=== PATIENT | female | born 2000 | race Caucasian/White ===

== ENCOUNTER 2024-02-20 16:31 | Emergency (ER) | payer BC, SELFPAY ==
--- NOTE | 2024-02-20 16:44 | ED_ITS ---
HPI - URI/Sore Throat General Chief Complaint: Wound/Laceration Stated Complaint: SORE THROAT / HEADACHE Time Seen by Provider: 02/20/24 16:49 Source: patient and RN notes reviewed Mode of arrival: ambulatory Limitations: no limitations History of Present Illness HPI Narrative: 23-year-old female presents with concern of for sore throat, nasal congestion, ear pain. Reports ear pain is worse on the left. She reports she did have a rash on her neck a few days ago that is getting better. She denies fever, aches, chills, sweats. She reports she took NyQuil last night MD elicited complaint: sore throat Related Data Home Medications Medication Instructions Recorded Confirmed fluticasone propionate 50 1 spray intranasal DAILY 02/20/24 02/20/24 mcg/actuation nasal spray,suspension loratadine 10 mg tablet 10 mg PO DAILY 02/20/24 02/20/24 methylphenidate HCl 36 mg 36 mg PO DAILY 02/20/24 02/20/24 tablet,extended release 24 hr spironolactone 50 mg tablet 50 mg DAILY 02/20/24 02/20/24 Allergies Allergy/AdvReac Type Severity Reaction Status Date / Time No Known Allergies Allergy Verified 02/20/24 16:47 Review of Systems Review of Systems: CONSTITUTIONAL: Denies malaise, chills, sweats, or fever. EYES: Denies visual changes, redness, or discharge. ENT: Reports rhinorrhea, congestion, otalgia and sore throat. CARDIOVASCULAR: Denies chest pain, palpitations, or edema. RESPIRATORY: Reports occasional cough. Denies dyspnea. GASTROINTESTINAL: Denies abdominal pain, nausea, vomiting, diarrhea SKIN: Denies rash or itching. MUSCULOSKELETAL: Denies myalgia. NEUROLOGIC: Denies headache. All systems reviewed & are unremarkable except as noted in HPI and below PMFSH Comments At time of signature, agree with nursing past medical, surgical, social and family history. There is no relevant family history pertinent to the presenting complaint Exam Narrative: GENERAL: Well-appearing, well-nourished, and in no acute distress. HEAD: Normocephalic EYES: PERRLA, conjunctivae clear ENT: Nares clear, turbinates edematous and erythematous, clear discharge. Mucous membranes moist. TM pearly with dull light reflex bilaterally; no tragal tenderness. Oropharynx not erythematous without lesions. Tonsils not enlarged and without exudate, no drooling, no hoarseness, no trismus, uvula midline. NECK: Supple. No lymphadenopathy CHEST: Clear to auscultation, breath sounds equal. No wheezing, rhonchi, rales, or stridor. No respiratory distress, speaks in full sentences. HEART: Regular rate and rhythm. No murmur heard. SKIN: Warm, dry, no rash. NEURO: Alert and oriented x3. PSYCH: Normal mood and affect Course Course Emergency Course: Patient is aware of diagnosis, understands and agrees to treatment plan. Anticipatory guidance given. Patient agrees to follow-up as directed and is aware of reasons to seek care at the emergency department. Portions of this record may have been created with voice recognition software Level of Care: [facility] Visit Vital Signs Vital signs: Reviewed. Procedures Ear Wax Removal Right Ear: Ear Wax Removal Date: 02/20/24 Ear Wax Removal Time: 16:58 Results: Re-examined: cerumen removed completely TM Examination: TM(s) intact, normal appearance Ear Canal Exam: atraumatic Patient Tolerated Procedure: well Complications: no problems Technique: ear canal curetted MDM - URI/Sore Throat MDM Narrative Medical decision making narrative: Differential diagnosis considered: Jones virus, strep pharyngitis, allergic rhinitis, upper respiratory tract infection, sinusitis, rhinosinusitis, nasopharyngitis. viral pharyngitis, otitis media, otitis externa, pneumonia, bronchitis, viral cough syndrome, viral syndrome, and influenza. Exam findings show no acute concerns or changes; patient is non-toxic appearing and is in no distress. Patient is appropriate for outpatient treatment and follow-up. Lab Data Attestation: I reviewed the patient's lab results. Critical Care Time Critical Care Time Critical Care Time: No Discharge Plan Discharge Clinical Impression: Upper respiratory infection Patient Disposition: Home, Self-Care Condition: Stable Instructions: Upper Respiratory Infection (ED) Additional Instructions: Your rapid strep swab was negative today at [facility]. A throat culture will be sent to the laboratory for further testing. If the test is positive, you will receive a phone call within 48 hours and an appropriate antibiotic will be initiated at that time. Your symptoms are likely due to a viral illness, which is not treated with antibiotics. Viral symptoms can be present for up to a few weeks. -Alternate Tylenol and Motrin per package directions for fever or pain. -Antihistamine medication such as Benadryl at night and Zyrtec during the day can help improve symptoms. -Eat and drink things that are easy to swallow, like tea or soup, or popsicles to suck on. -Oral rinses such as: Salt water gargles and/or may use topical anesthetic (eg. Chloraseptic spray) or lozenges to relieve dryness or throat pain). -Frequent hand washing or hand system development manager is one of the best ways to prevent spread of infection. -Follow up with primary care provider in 2-3 days if condition is not improving; or seek ER visit if you have trouble breathing, cannot drink enough fluids, have muffled voice, difficulty opening your mouth, or severe swelling. Prescriptions: New pseudoephedrine HCl [12 Hour Decongestant] 120 mg tablet extended release 120 mg PO Q12H PRN (Reason: nasal congestion) Qty: 20 0RF No Action fluticasone propionate [Flonase] 50 mcg/actuation [place],Suspension 1 spray INTRANASAL DAILY Rx Instructions: administer into each nostril loratadine 10 mg Tablet 10 mg PO DAILY methylphenidate HCl 36 mg tablet extended release 24hr 36 mg PO DAILY spironolactone 50 mg tablet 50 mg DAILY Follow-up/Referrals: PHYSICIAN,HAND PACKAGER [Primary Care Provider] - Time of Disposition: 17:08
[2024-02-20 16:47] VITALS: BP 114/70; PULSE 80; RESP 16; TEMP 36.4; O2SAT 98
[2024-02-20 16:49] VITALS: BP 114/70; PULSE 80; RESP 16; TEMP 36.4; O2SAT 98
[2024-02-20 17:08] LABS: EDSTREPNEGPOS1 Negative (Negative)
== END 2024-02-20 17:13 | disposition home or self-care (01) ==
PROVIDERS: Emergency Provider Nurse Practitioner
DX: J06.9 Acute upper respiratory infection, unspecified (principal); H61.21 Impacted cerumen, right ear; F90.9 Attention-deficit hyperactivity disorder, unspecified type
CPT/HCPCS: 69210; 87081; 87880; 99203; G0463

== ENCOUNTER 2024-07-07 09:45 | Emergency (ER) | payer BC, SELFPAY ==
[2024-07-07 09:50] VITALS: BP 117/72; PULSE 95; RESP 16; TEMP 36.4; O2SAT 97
[2024-07-07 10:09] LABS: EDSTREPNEGPOS1 Negative (Negative)
--- NOTE | 2024-07-07 10:12 | ED.URI ---
HPI - URI/Sore Throat General Chief Complaint: Upper Respiratory Infection Stated Complaint: Sore Throat/Congestion Time Seen by Provider: 07/07/24 10:12 Source: patient Mode of arrival: ambulatory Limitations: no limitations History of Present Illness HPI Narrative: 23-year-old female presents with complaint of intermittent nasal congestion, sinus pressure, sinus headaches for the past month. Patient takes a generic antihistamine daily. Intermittently uses a Flonase nasal spray. Afebrile. Reports sinus congestion, pressure and sore throat with drainage worse the past 2-3 days. Patient concern for bacterial sinusitis. All systems reviewed and negative except as noted above. Related Data Home Medications ?Medication ?Instructions ?Recorded ?Confirmed ?Last Taken ?Type loratadine 10 mg tablet 10 mg PO DAILY 02/20/24 02/20/24 Unknown History spironolactone 50 mg tablet 50 mg DAILY 02/20/24 02/20/24 Unknown History Allergies Allergy/AdvReac Type Severity Reaction Status Date / Time No Known Allergies Allergy Verified 07/07/24 10:00 Review of Systems Review of Systems: CONSTITUTIONAL: Denies fever, chills, or sweats. EYES: Denies visual changes, redness, or discharge. ENT: Reports rhinorrhea, congestion, sinus pressure, sinus headaches, sore throat. Denies otalgia. CARDIOVASCULAR: Denies chest pain, palpitations, or edema. RESPIRATORY: Denies cough or dyspnea. GASTROINTESTINAL: Denies abdominal pain, nausea, vomiting, or diarrhea. GENITOURINARY: Denies dysuria or hematuria. SKIN: Denies rash or itching. MUSCULOSKELETAL: Denies back pain, joint pain, or myalgia. NEUROLOGIC: Denies headache, numbness, or weakness. PSYCHIATRIC: Denies anxiety or depression. All other systems reviewed are negative, except as documented in HPI. PMFSH Comments At time of signature, agree with nursing past medical, surgical, social and family history. There is no relevant family history pertinent to the presenting complaint. Exam Narrative: GENERAL: This is a well-nourished, well-developed patient, in no apparent distress. HEAD: normocephalic, atraumatic. EYES: PERRL. Sclera clear/white. Vision is grossly intact. EARS: External ears normal, auditory canals clear and without drainage, TMs normal without perforation. Hearing grossly intact. NOSE: External nose normal with congestion, purulent nasal drainage, erythema and swelling to bilateral nares. Maxillary sinus tenderness bilaterally on palpation THROAT: Mucous membranes moist, erythematous with postnasal drainage, no significant swelling or exudates NECK: Neck supple, non-tender without lymphadenopathy, masses or thyromegaly. CARDIOVASCULAR: Regular rate and rhythm without murmurs, gallops, or rubs. RESPIRATORY: Clear to auscultation. Breath sounds equal bilaterally. No wheezes, rales, or rhonchi. SKIN: warm, Dry, intact with no suspicious lesions or rash, good texture and turgor. NEURO: awake, alert, and oriented to person, place and time. There were no obvious focal neurologic abnormalities. EXTREMITIES: No joint tenderness, effusion, or edema noted. Course Course Level of Care: Express Care Visit Vital Signs Vital signs: Vital Signs Temperature 36.4 C L 07/07/24 09:50 Pulse Rate 95 07/07/24 09:50 Respiratory Rate 16 07/07/24 09:50 Blood Pressure 117/72 07/07/24 09:50 Pulse Oximetry 97 07/07/24 09:50 Oxygen Delivery Room Air 07/07/24 09:50 Temperature 36.4 C L 07/07/24 09:50 Pulse Rate 95 07/07/24 09:50 Respiratory Rate 16 07/07/24 09:50 Blood Pressure 117/72 07/07/24 09:50 Pulse Oximetry 97 07/07/24 09:50 Oxygen Delivery Room Air 07/07/24 09:50 reviewed MDM - URI/Sore Throat MDM Narrative Medical decision making narrative: will treat for bacterial sinusitis due to duration of symptoms and exam findings. Patient is well-appearing, nontoxic. Please be advised this is a medical document. It is intended for [id number] communication. It is written in medical language and may contain unfamiliar abbreviations or verbiage. Medical documents are intended to carry relevant information, facts as evident, and the clinical opinion of the practitioner at the time of the encounter. This report may have been done utilizing a voice recognition system. Attempts have been made to correct errors. However, there may be uncorrected grammatical, spelling, and recognition errors present. The file time of this note does not necessarily represent the time of service. Differential Diagnosis Differential diagnosis: Likely upper respiratory infection, sinusitis, viral infection and pharyngitis Lab Data Labs: Lab Results 07/07/24 Range/Units 10:07 POC Grp A Strep Screen Negative (Negative) Discharge Plan Discharge Clinical Impression: Acute bacterial sinusitis Patient Disposition: Home Condition: Stable Instructions: Antibiotic Form, Sinusitis (ED) Additional Instructions: Take medications as prescribed. Continue taking your daily antihistamine. Use a nasal spray daily such as Flonase or Nasacort. Use as directed on packaging. Drink at least 64 oz of water a day. Place cool mist humidifier in bedroom where you sleep. Follow-up with your primary care physician if symptoms are not improving. Patient Language: Ethiopian Prescriptions: New amoxicillin 875 mg tablet 875 mg PO Q12H 7 Days Qty: 14 0RF methylprednisolone [Medrol (Donny)] 4 mg tablets,dose pack See Rx Instructions PO .COMPLEX Qty: 21 0RF Rx Instructions: orally per package directions No Action loratadine 10 mg Tablet 10 mg PO DAILY spironolactone 50 mg tablet 50 mg DAILY Follow-up/Referrals: PHYSICIAN NOT ON STAFF,NONSTAFF [Primary Care Provider] - Stand Alone Forms: Work/School Release IP Time of Disposition: 10:18
--- OUTSIDE RECORDS SUMMARY | 2024-07-07 10:35 | XMS_ITS ---
Author Organization [facility] Address [address] [place], [place] [id number] Care Team Providers Care Manager Medicare Marketing Name Role Phone Mariela Schaffer Primary Care Provider REASON FOR VISIT RE:spironolactone RF Social History Sex Assigned At : Social History Observation Description Sex Assigned At Female Encounters Encounter Location Date Provider Diagnosis [facility] [address] [place], [place] [id number] 03/03/2024 Mariela Schaffer Plan Of Treatment No Information Progress Notes * Cynthia HONGDOB:2000 (23 yo F)Acc No.[id number]:03/03/2024 Patient: Cynthia HOLT :2000 A ge:23 Y S ex:Female Address:[facility] [place] [address] * true * Date: Generated for Dimitrisi ng/Falavonneg/eTransmitting on: 0 07/07/2024 10:35 AM CDT
--- OUTSIDE RECORDS SUMMARY | 2024-07-07 10:35 | XMS_ITS | Clinical Summary ---
Author Organization [facility] Address [facility] [place] [address] Care Team Providers Care Spool Hauler Name Role Phone None, Provider MD Primary Care Provider Unavaila ble Allergies No known active allergies Medications No known medications Family History Medical History Relation Comments Cancer Maternal Grandmother Relation Status Comments Maternal Grandmother Social History Tobacco Use Types Packs/Day Years Used Date Smoking Tobacco: Former Smokeless Tobacco: Never Alcohol Use Standard Drinks/Week Comments Yes 0 (1 standard drink = 0.6 oz pur e alcohol) Comments Unknown Sex and Gender Information Value Date Recorded Sex Assigned at Not on file Legal Sex Female 11:38 AM RELATIONS COORDINATOR Gender Identity Not on file Sexual Orientation Not on file Last Filed Vital Signs Vital Sign Reading Time Taken Comments Blood Pressure 120/80 05/09/2019 1:02 PM RELATIONS COORDINATOR Pulse - - Temperature - - Respiratory Rate 16 05/09/2019 1:02 PM RELATIONS COORDINATOR Oxygen Saturation - - Inhaled Oxygen Concentration - - Weight 70.9 kg (156 lb 3.2 oz) 05/09/2019 1:02 P M RELATIONS COORDINATOR Height 166.4 cm (5' 5.5 ) 05/09/2019 1:02 PM RELATIONS COORDINATOR Body Mass Index 25.6 05/09/2019 1:02 PM RELATIONS COORDINATOR Plan of Treatment Health Maintenance Due Date Last Done Comments Cervical Cancer Screening Pap Smear (Age 21 to 29) Every 3 Years 1998 Cervical Cancer Screening 2000 HPV Vaccines (1 - 3-dose series) 2013 DTaP, Tdap and Td Vaccines (4 - Tdap) 2017 11/10/2003, 02/29/2000, 07/13/1999, Additional history exists Hepatitis B Vaccines (1 of 3 - 19+ 3-dose series) 2017 Annual Physical 05/09/2020 05/09/2019 COVID-19 Vaccine ( season) 2023 Hepatitis C Completed 05/09/2019 Meningococcal B Vaccine Aged Out No l onger eligible based on patient's age to complete this topic Meningococcal Vaccine Aged Out No marilyn kevin eligible based on patient's age to complete this topic Pneumococcal Vaccine: Pediatrics (0 to 5 Years) and At-Risk Patients (6 to 49 Years) Aged Out No longer eligible based on patient's age to complete this topic RSV Immunizations Under 20 Months Aged Out No longer eligible based on patient's age to complete this topic Procedures Procedure Name Priority Date/Time Associated Diagnosis Comments HEPATITIS PANEL,ACUTE Routine 05/09/2019 1:42 PM RELATIONS COORDINATOR Routine screening for STI (sexually transmitted infection) from Last 3 Months or Most Recently Relevant to Health Maintenance Results * HEPATITIS PANEL,ACUTE (05/09/2019 1:42 PM RELATIONS COORDINATOR) HEPATITIS B SURFACE AG NON-REACT HIPOLITO NON-REACT HIPOLITO 05/09/2019 5:13 PM RELATIONS COORDINATOR [facility] HEP B CORE IGM NON-REACT HIPOLITO NON-REACT HIPOLITO 05/09/2019 5:13 PM RELATIONS COORDINATOR [facility] Comment: HIGH DOSES OF BIOTIN MAY INTERFERE WITH THIS TEST RESULT. CORRELATION TO CLINICAL HISTORY AND PRESENTATION RECOMMENDED. HAV IGM NON-REACT HIPOLITO NON-REACT HIPOLITO 05/09/2019 5:13 PM RELATIONS COORDINATOR [facility] HEPATITIS C AB NON-REACT HIPOLITO NON-REACT HIPOLITO 05/09/2019 5:13 PM RELATIONS COORDINATOR [facility] Comment: ANTIBODIES TO HCV NOT DETECTED. DOES NOT EXCLUDE THE POSSIBILITY OF EXPOSURE TO HCV. 05/09/2019 1:42 PM RELATIONS COORDINATOR us Dustin Storey MD LABORATORY Final Resul t [facility] [email or web address] [address], from Last 3 Months or Most Recently Relevant to Health Maintenance Insurance [employer] Care Teams Spool Hauler Relationship Specialty Start Date End Date None, Provider, PCP - General 05/09/19
--- OUTSIDE RECORDS SUMMARY | 2024-07-07 10:36 | XMS_ITS ---
Author Organization [facility] Address [address] [place], [place] [id number] Care Team Providers Care Claim Processing Specialist Name Role Phone Mariela Schaffer Primary Care Provider Allergies No Known Allergies REASON FOR VISIT * med check, *[facility] Telemedicine ADD Medications Medication SIG (Take, Route, Frequency, Duration) Notes Start Date End Date Status Concerta 36 MG 1 tablet in the morn ing Orally Once a day for 30 days 04/11/2024 Active Clindamycin Phosphate 1 % 1 application Externally Twice a day for 30 days 04/11/2024 Active B12 Active Vitamin D3 Active Ovasitol - OTC Active Loratadine Allergy Relief OTC Active Spironolactone 100 MG 1 tablet Orally Once a day Active Social History Sex Assigned At : Social History Observation Description Sex Assigned At Female Encounters Encounter Location Date Provider Diagnosis [facility] [address] [place], [place] [id number] 04/11/2024 Mariela Schaffer Inattention R41.840 ; Depression F32.9 ; BESSY (generalized anxiety disorder) F41.1 ; PCOS (polycystic ovarian syndrome) E28.2 ; Abnormal uterine bleeding (AUB) N93.9 and Acne vulgaris L70.0 Assessments Encounter Date Diagnosis (ICD Code) Assessment Notes Treatment Notes Treatment Clinical Notes Section Notes 04/11/2024 Inattention (ICD-10 - R41.840) Stable with concerta 36mg only 2-3 times per week on her longest work days, going well without issues. [place]. 04/11/2024 Depression (ICD-10 - F32.9) Reports mood improving with regular counseling, continue as directed 04/11/2024 BESSY (generalized anxiety disorder) (ICD-10 - F41.1) as above 04/11/2024 PCOS (polycystic ovarian syndrome) (ICD-10 - E28.2) spironolactone continues to be beneficial for hormonal acne and hirsutism 04/11/2024 Abnormal uterine bleeding (AUB) (ICD-10 - N93.9) agree she should establish with gynecology more locally and have evaluation. I am happy to order pelvic ultrasound for her if she provides information for imaging center near her home. 04/11/2024 Acne vulgaris (ICD-10 - L70.0) Cystic acne resolved with spironolactone, we will send clindamycin to use topically for remaining papules over the cheeks and forehead. 04/11/2024 Other This document used [employer] Direct Feather Sawyer Software. Feather Sawyer errors are not uncommon, and may not have been discovered prior to electronically signing the note. Should you find these errors, please consult the clinician for interpretation (or apply common sense adjustment when safe and appropriate). This encounter was completed via two-way synchronous audio and video communication. Patient is present and his/her identity was confirmed. The patient/guardian is aware of his/her right to refuse to participate in services delivered via telemedicine and the alternatives and potential limitations of participating in a telemedicine visit versus a [id number] visit. Verbal consent was obtained from the patient/guardian to allow this to be designated as a telehealth encounter in lieu of a rfga-ya-ebmi office visit, the later having been offered to the patient as an option to be scheduled at a later date. This telehealth visit is being conducted at the patient/guardian's request. The risks and benefits of telemedicine were discussed with patient along with potential responsibility for payment. I have informed the patient of my current location and verified the location of the patient. Patient/guardian desired to proceed with the telemedicine visit. Any physical exam detailed is from audio and/or video inspection performed during this patient encounter. Doug Black M.D. was in suite and available to assist when the visit was rendered. This document used [employer]ather [employer] Software. Feather Sawyer errors are not uncommon, and may not have been discovered prior to electronically signing the note. Should you find these errors, please consult the clinician for interpretation (or apply common sense adjustment when safe and appropriate). Plan Of Treatment Medication Medication Name Sig Start Date Stop Date Notes Concerta 36 MG 1 tablet in the morn ing Orally Once a day for 30 days 04/11/2024 Clindamycin Phosphate 1 % 1 application Externally Twice a day for 30 days 04/11/2024 Spironolactone 100 MG 1 tablet Orally Once a day Treatment Notes Assessment Notes Inattention Stable with concerta 36mg only 2-3 times per week on her longest work days, going well without issues. [place] 3 [place]. Depression Reports mood improvi ng with regular counseling, continue as directed BESSY (generalized anxiety disorder) as ab ove PCOS (polycystic ovarian syndrome) sohail nolactone continues to be beneficial for hormonal acne and hirsutism Abnormal uterine bleeding (AUB) agree sh e should establish with gynecology more locally and have evaluation. I am happy to order pelvic ultrasound for her if she provides information for imaging center near her home. Acne vulgaris Cystic acne resolved with spironolactone, we will send clindamycin to use topically for remaining papules over the cheeks and forehead. Other This document used [employer] Software. Feather Sawyer errors are not uncommon, and may not have been discovered prior to electronically signing the note. Should you find these errors, please consult the clinician for interpretation (or apply common sense adjustment when safe and appropriate). This encounter was completed via two-way synchronous audio and video communication. Patient is present and his/her identity was confirmed. The patient/guardian is aware of his/her right to refuse to participate in services delivered via telemedicine and the alternatives and potential limitations of participating in a telemedicine visit versus a etyy-fl-uavw visit. Verbal consent was obtained from the patient/guardian to allow this to be designated as a telehealth encounter in lieu of a djlb-wi-xoen office visit, the later having been offered to the patient as an option to be scheduled at a later date. This telehealth visit is being conducted at the patient/guardian's request. The risks and benefits of telemedicine were discussed with patient along with potential responsibility for payment. I have informed the patient of my current location and verified the location of the patient. Patient/guardian desired to proceed with the telemedicine visit. Any physical exam detailed is from audio and/or video inspection performed during this patient encounter. Doug Black M.D. was in suite and available to assist when the visit was rendered. This document used [employer] Direct Feather Sawyer Software. Feather Sawyer errors are not uncommon, and may not have been discovered prior to electronically signing the note. Should you find these errors, please consult the clinician for interpretation (or apply common sense adjustment when safe and appropriate). Next Appt Details Follow Up: 3 Months,prn, Gris son: med check Progress Notes * Cynthia HONGDOB:2000 (23 yo F)Acc No.[id number]:04/11/2024 Progress Note Patient: Cynthia HOLT Provider: BILL Garza :2000 A ge:23 Y S ex:Female Date:04/11/2024 Address:[address] [place] [address] [place] [address] Subjective: * Chief Complaints: * * med check*[facility] Telemedicine ADD * HPI: - -----: Location of patient at time of telemedicine visit: Home in [place], [place] Telemedicine visit to follow-up on inattention. Doing well on current medication. Takes 2-3 days per week right now. No significant side effects, such as motor tics, insomnia, abdominal pain or unexpected weight loss. Improvement in task completion, forgetfulness, organizational abilities. Reduced occupational and social impairment. No signs of drug diversion. Still working with counselor. Mood feeling a bit better. Definitely has noticed if she isn't eating well this affects her mood. Also had 3 periods in 6 weeks, that had a huge affect on her mood. She does have many family members with endometriosis as well as 2 family members with endometrial cancer. Wanting to establish with gyne near [place], just having a hard time getting connected/scheduled. * ROS: S ee HPI for pertinent review of systems. Negative other than already mentioned above. * Medical History: * Surgical History: w isdom teeth * Hospitalization/Major Diagno stic Procedure: D enies Past Hospitalization * Family History: F ather: alive. M other: alive. MGPA - DM dads side - HTN, heart disease MGMA - ovarian CA mom - depression, anxiety dad - depression poss. * Medications: T akingOvasitol , Notes to Pharmacist: - OTCVitamin D3 B12 Loratadine Allergy Relief , Notes to Pharmacist: OTCSpironolactone 100 MG Tablet 1 tablet Orally Once a day Concerta 36 MG Tablet Extended Release 1 tablet in the morning Orally Once a day Medication List reviewed and reconciled with the patientTaking Ovasitol , Notes to Pharmacist: - OTCTaking Vitamin D3 Taking B12 Taking Loratadine Allergy Relief , Notes to Pharmacist: OTCTaking Spironolactone 100 MG Tablet 1 tablet Orally Once a day Taking Concerta 36 MG Tablet Extended Release 1 tablet in the morning Orally Once a day Medication List reviewed and reconciled with the patient * Allergies: N .K.D.A.no[Allergies Verified] Objective: * Vitals: * Examination: Loren hale focused exam: G eneral: Pleasant, well-appearing. No acute distress. Speech fluent and conversational. Neuro: No gross focal deficits. No motor tics. Psych: Appropriate affect. Well kempt. Good eye contact. Normal speech pattern. No suicidal ideation or active hallucinations. Assessment: * Assessment: 1. I nattention - R41.840 (Primary) 2 . D epression - F32.9 ?3. G AD (generalized anxiety disorder) - F41.1 4 . P COS (polycystic ovarian syndrome) - E28.2 5 . A bnormal uterine bleeding (AUB) - N93.9 ?6. A cne vulgaris - L70.0 Plan: * Treatment: 2. D epression Notes: Reports mood improving with regular counseling, continue as directed 3. G AD (generalized anxiety disorder) Notes: as above 4. P COS (polycystic ovarian syndrome) Continue Spironolactone Tablet, 100 MG, 1 tablet, Orally, Once a day. Notes: spironolactone continues to be beneficial for hormonal acne and hirsutism 5. A bnormal uterine bleeding (AUB) Notes: agree she should establish with gynecology more locally and have evaluation. I am happy to order pelvic ultrasound for her if she provides information for imaging center near her home. ? 6. A cne vulgaris Start Clindamycin Phosphate Gel, 1 %, 1 application, Externally, Twice a day, 30 days, 30 g, Refills 0. Notes: Cystic acne resolved with spironolactone, we will send clindamycin to use topically for remaining papules over the cheeks and forehead. 7. O thers Refill Concerta Tablet Extended Release, 36 MG, 1 tablet in the morning, Orally, Once a day, 30 days, 30 Tablet, Refills 0. Notes:This document used [employer] Software. Feather Sawyer errors are not uncommon, and may not have been discovered prior to electronically signing the note. Should you find these errors, please consult the clinician for interpretation (or apply common sense adjustment when safe and appropriate). This encounter was completed via two-way synchronous audio and video communication. Patient is present and his/her identity was confirmed. The patient/guardian is aware of his/her right to refuse to participate in services delivered via telemedicine and the alternatives and potential limitations of participating in a telemedicine visit versus a ojda-xa-iexm visit. Verbal consent was obtained from the patient/guardian to allow this to be designated as a telehealth encounter in lieu of a pknr-yo-iqyb office visit, the later having been offered to the patient as an option to be scheduled at a later date. This telehealth visit is being conducted at the patient/guardian's request. The risks and benefits of telemedicine were discussed with patient along with potential responsibility for payment. I have informed the patient of my current location and verified the location of the patient. Patient/guardian desired to proceed with the telemedicine visit. Any physical exam detailed is from audio and/or video inspection performed during this patient encounter. Doug Black M.D. was in suite and available to assist when the visit was rendered. This document used [employer] Software. Fe[employer]yer errors are not uncommon, and may not have been discovered prior to electronically signing the note. Should you find these errors, please consult the clinician for interpretation (or apply common sense adjustment when safe and appropriate). * Procedure Codes: G 2211 Continuous Primary Care * Preventive Medicine: D iscussed potential side effects, anticipated course, encouraging to take at least 1 day off a week. To keep medication in a safe place, discussed will not replace medication if lost or stolen. * Follow Up: 3 Months,prn (Reason: med check) Care Plan: * Problems: * Images: Billing Information: * Visit Code: 84114 Office Visit, Est Pt., Level 3, Telemedicine. Modifiers: 95 * Procedure Codes: G2211 Continuous Primary Care. * LE BENDER Sign off status: Completed true * Provider: BILL Garza Date: 0 04/11/2024 Generated for Gertrude valentino/Mady/Chayoitting on: 0 07/07/2024 10:36 AM CDT History and Physical Notes * HPI (History of Present Illness) Category Sub-Category Detail Notes Category Not es ------ Location of patient at time of telemedicine visit: Home in [place], [place] Telemedicine visit to follow-up on inattention. Doing well on current medication. Takes 2-3 days per week right now. No significant side effects, such as motor tics, insomnia, abdominal pain or unexpected weight loss. Improvement in task completion, forgetfulness, organizational abilities. Reduced occupational and social impairment. No signs of drug diversion. Still working with counselor. Mood feeling a bit better. Definitely has noticed if she isn't eating well this affects her mood. Also had 3 periods in 6 weeks, that had a huge affect on her mood. She does have many family members with endometriosis as well as 2 family members with endometrial cancer. Wanting to establish with gyne near [place], just having a hard time getting connected/scheduled. Examination Category Sub-Category Detail Notes Category Not es Problem focused exam General: Pleasant, well-appearing. No acute distress. Speech fluent and conversational. Neuro: No gross focal deficits. No motor tics. Psych: Appropriate affect. Well kempt. Good eye contact. Normal speech pattern. No suicidal ideation or active hallucinations.
--- OUTSIDE RECORDS SUMMARY | 2024-07-07 10:36 | XMS_ITS | Clinical Summary ---
Author Organization [facility] Address [address] [place] [address] Phone Care Team Providers Care Project Manager Senior Name Role Phone Mariela Schaffer APRN, IMAN Primary Care Provi nahid Allergies No known active allergies Medications Ellamore-3 Fatty Acids (FISH OIL PO)Indications: Urinary pain Take by mouth. Ac tive fluconazole (DIFLUCAN) 150 MG Tablet Take at onset of symptoms. Repeat in 4 days if needed 2 Tablet 2 Active doxycycline hyclate (VIBRAMYCIN) 100 MG Capsule 0 Refill(s) 2 Active nystatin-triamc inolone (MYCOLOG II) 255143-0.1 UNIT/GM-% Cream 2 Active Sprintec 28 0.25-35 MG-MCG Tablet Take 1 Tablet by mouth daily. 2 Active methylPREDNISol one (MEDROL DOSPACK) 4 MG Tablet Therapy PackIndications :Left ear pain Use as per instructions on package. 21 Tablet 2 Active Active Problems No known active problems Social History Tobacco Use Types Packs/Day Years Used Date Smoking Tobacco: Never Smokeless Tobacco: Never Tobacco Cessation:Counseling Given: Not Answered Alcohol Use Standard Drinks/Week Comments Yes 0 (1 standard drink = 0.6 oz pur e alcohol) freq Sexually Active Control Partners Comments Yes None Male Comments No Sex and Gender Information Value Date Recorded Sex Assigned at Not on file Legal Sex Female 7:51 PM CDT Gender Identity Not on file Sexual Orientation Not on file Last Filed Vital Signs Vital Sign Reading Time Taken Comments Blood Pressure 117/82 07/24/2023 11:29 AM CDT Pulse 80 07/24/2023 11:29 AM CDT Temperature 36.6 C (97.9 F) 07/24/2023 11:29 AM CDT Respiratory Rate 14 06/07/2023 5:56 PM CDT Oxygen Saturation 98% 07/24/2023 11:29 AM CDT Inhaled Oxygen Concentration - - Weight 74.8 kg (165 lb) 07/24/2023 11:29 AM CDT Height 165.1 cm (5' 5 ) 06/07/2023 5:56 PM CDT Body Mass Index 27.46 06/07/2023 5:56 PM CDT Plan of Treatment Health Maintenance Due Date Last Done Comments Human Papillomavirus (HPV) Immunization (1 - 3-dose series) 2013 Pap Smear 11/18/2019 Influenza Immunization (#1) 2023 12/30/2013, 1 SARS-COV-2 Immunization ( season) 2023 Respiratory Syncytial Virus (RSV) Immunization (Adult) (1 - 1-dose 75+ series) 2073 Hepatitis B Immunization Completed 000, 04/18/1999, 01/12/1999 Meningococcal Immunization (ACWY) Completed 05/10/2015 DTaP/Tdap/Td Immunization Discontinued 2022, 11/10/2003, 02/29/2000, Additional history exists TdaP Immunization Completed 03/16/2023 Hepatitis C Virus (HCV) Screening Completed 06/07/2023, 06/07/2023, 05/09/2019 Pneumococcal Immunization Combined Aged Out No longer eligible based on patient's age to complete this topic Rotavirus Immunization Aged Out No lo nger eligible based on patient's age to complete this topic Procedures Procedure Name Priority Date/Time Associated Diagnosis Comments HEPATITIS C ANTIBODY STAT 06/07/2023 6:33 PM CDT from Last 3 Months or Most Recently Relevant to Health Maintenance Results * Hepatitis C Antibody (06/07/2023 6:33 PM CDT) hepatitis C antibody 0.0800 <1 S/CO 06/08/2023 7:02 AM CDT [facility] Comment: Signal/Cutoff ratio < 0.79 is Nondetected Signal/Cutoff ratio 0.80-0.99 is Grayzone Signal/Cutoff ratio > 0.99 is Detected Supplemental assays are recommended if signal/cutoff ratio is >/=1.00. Signal/cutoff ratio result >/= 5.00 is 97% predictive of positivity for recombinant immunoblot assay (RIBA) and will be reported to the [place] Department of Public Health as required. Blood Venous Catheter (IV) / Unknown 06/07/2023 6:33 PM CDT 06/07/2023 6:45 PM CDT us Rita Quiroz PAC CHEMISTRY ORDERABLES Final Result [facility] [address] [place] [address], from Last 3 Months or Most Recently Relevant to Health Maintenance Insurance [facility] Care Teams Project Manager Senior Relationship Specialty Start Date End Date Mariela Schaffer, DISTRICT MANAGER MAJOR ACCOUNTS SALES, FINISHING INSPECTOR [address] [place] [address] [place] [address] PCP - General Advanced Practice Nurse 06/07/23
--- OUTSIDE RECORDS SUMMARY | 2024-07-07 10:36 | XMS_ITS ---
Author Organization [facility] Address [address] [place], [place] [address] Care Team Providers Care Logistics Analytics Manager Name Role Phone Mariela Schaffer Primary Care Provider REASON FOR VISIT spironolactone RF Social History Sex Assigned At : Social History Observation Description Sex Assigned At Female Encounters Encounter Location Date Provider Diagnosis [facility] [address] [place], [place] [id number] 02/26/2024 Mariela Schaffer Plan Of Treatment No Information Progress Notes * Cynthia HONGDOB:2000 (23 yo F)Acc No.[id number]:02/26/2024 Patient: Cynthia HOLT :2000 A ge:23 Y S ex:Female Address:[facility] [place] [address] * true * Date: Generated for Dimitrisi ng/Falavonneg/eTransmitting on: 0 07/07/2024 10:35 AM CDT
--- OUTSIDE RECORDS SUMMARY | 2024-07-07 10:36 | XMS_ITS | Patient Health Record ---
Author Organization [facility]. Address [address] [place] [address] Dr [place], [place] [id number] Care Team Providers Care Recycling Technician Name Role Phone KarimeJessicamariajose Primary Care Provider [phone] Allergies No Known Allergies Reason For Referral No Information Medications Medication SIG (Take, Route, Frequency, Duration) Notes Start Date End Date Status Concerta 36 MG 1 tablet in the morn ing Orally Once a day for 30 days 04/11/2024 Active Loratadine Allergy Relief OTC Active Spironolactone 100 MG 1 tablet Orally On ce a day for 90 days Active Clindamycin Phosphate 1 % 1 application Externally Twice a day for 30 days 04/11/2024 Active B12 Active Vitamin D3 Active Ovasitol - OTC Active Immunizations Vaccine Route Administration Date Status Comme nts TDaP over 7 yrs. (Adacel) IM Intramuscular 03/16/2023 Admi nistered Social History Tobacco Use: Social History Observation Description Date Details (start date - stop date) Former Smoker NA - NA Sex Assigned At : Social History Observation Description Sex Assigned At Female TOBACCO USE - Question Answer Notes Are you a: former Tobacco user Section Notes: no tobacco, occ ETOH, single , 0 children, hygenist and [facility] no tobacco, occ ETOH, single , [facility] children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, 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, 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, 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, hygenist and [facility] Problems Problem Type SNOMED Code ICD Code Onset Dates Problem Status W/U Status Risk Notes Problem Depression (163735281) Depression (F32.9) Active confirmed Problem 594114081 PCOS (polycystic ovarian syndrome) (E28.2) Active confirmed Problem Generalized anxiety disorder (29531400) BESSY (generalized anxiety disorder) (F41.1) Active confirmed Problem Inattention (69791010) Inattention (R41.840) Active confirmed Vital Signs Heart Rate 96 /min 10/12/2023 Temperature 97.9 degrees Fahrenheit 10/12/2023 Blood pressure diastolic 76 mm HG 10/12/2023 Height 66 in 10/12/2023 Blood pressure systolic 108 mm HG 10/12/2023 Weight 173.0 lbs 10/12/2023 BMI 27.92 kg/m2 10/12/2023 Encounters Encounter Location Date Provider Diagnosis [address] [place] [id number] 08/17/2023 Mariela Schaffer Depression F32.9 ; BESSY (generalized anxiety disorder) F41.1 ; Inattention R41.840 and PCOS (polycystic ovarian syndrome) E28.[address] [place] [id number] 10/12/2023 Mariela Schaffer BESSY (generalized anxiety disorder) F41.1 ; Inattention R41.840 ; Depression F32.9 and PCOS (polycystic ovarian syndrome) E28.[address] [place] [id number] 01/15/2024 Mariela Schaffer PCOS (polycystic ovarian syndrome) E28.2 ; BESSY (generalized anxiety disorder) F41.1 ; Depression F32.9 and Inattention R41.[address] [place] [id number] 04/11/2024 Mariela Schaffer Inattention R41.840 ; Depression F32.9 ; BESSY (generalized anxiety disorder) F41.1 ; PCOS (polycystic ovarian syndrome) E28.2 ; Abnormal uterine bleeding (AUB) N93.9 and Acne vulgaris L70.0 [facility] [address] [place] [id number] 09/16/2023 Mariela [facility]. [address] [place] [id number] 09/18/2023 Mariela [facility]. [address] [place], [place] [id number] 09/19[facility] [address] [place] [id number] 09/20/2023 Mariela [facility]. [address] [place] [id number] 11/[facility] PCOS (polycystic ovarian syndrome) E28.2 [facility]. [address] [place] [id number] 11/27/20[facility] [address] [place] [id number] 02/26/2024 [facility] [address] [place] [id number] 03/03/2024 [facility] Assessments Encounter Date Diagnosis (ICD Code) Assessment Notes Treatment Notes Treatment Clinical Notes Section Notes 08/17/2023 BESSY (generalized anxiety disorder) (ICD-10 - F41.1) Strongly recommend counseling, she plans to establish once she has moved. Hydroxyzine PRN. 10/12/2023 BESSY (generalized anxiety disorder) (ICD-10 - F41.1) Better off wellbutrin 10/12/2023 Inattention (ICD-10 - R41.840) Concerta helpful, only taking 4-5 days per week with good benefit. Slight dose increase to 36mg. Much better PHQ and BESSY scores. Will continue. Med check 3 months. 11/23/2023 PCOS (polycystic ovarian syndrome) (ICD-10 - E28.2) 01/15/2024 PCOS (polycystic ovarian syndrome) (ICD-10 - E28.2) Tolerating spironolactone at 100 mg just fine, some increased urination but tolerable. Hirsutism and cystic acne improving. 01/15/2024 BESSY (generalized anxiety disorder) (ICD-10 - F41.1) She reports doing well overall, now established with a counselor in seeing them weekly. Very glad that she is established with somebody, she is already finding some benefit. 08/17/2023 Depression (ICD-10 - F32.9) Not controlled. Denies suicidal plan or intention. Reduce wellbutrin to 150mg XL daily and will add concerta with close follow up in 4 weeks. 04/11/2024 Depression (ICD-10 - F32.9) Reports mood improving with regular counseling, continue as directed 04/11/2024 Inattention (ICD-10 - R41.840) Stable with concerta 36mg only 2-3 times per week on her longest work days, going well without issues. [place] 3 [place]. 04/11/2024 BESSY (generalized anxiety disorder) (ICD-10 - F41.1) as above 01/15/2024 Depression (ICD-10 - F32.9) As above, doing better overall with regular therapy. Continues to feel better off Wellbutrin. 08/17/2023 Inattention (ICD-10 - R41.840) Has had many mood medicine failures. Will trial adding concerta back in and follow up in 3-4 weeks to see if this offers any benefit in her mood symptoms as well. Certainly struggling with ADHD symptoms but cannot determine at this point if secondary to anxiety/depression or organic. 10/12/2023 Depression (ICD-10 - F32.9) A little increased off wellbutrin, but still significantly improved from last time. Concerta helpful for attention and offering benefit in mood. No active SI or self harming thoughts. Continue to monitor. Med check in 3 months. 10/12/2023 PCOS (polycystic ovarian syndrome) (ICD-10 - E28.2) Continue spironolactone. 01/15/2024 Inattention (ICD-10 - R41.840) Good benefit from Concerta at the 36 mg dose, taking 3-4 times a week on average. [place] [employer] reviewed without concerns. Securely refilled stimulant for one month. Advised to request refill through the pharmacy or send the office a web message when nearing need for refill. 04/11/2024 PCOS (polycystic ovarian syndrome) (ICD-10 - E28.2) spironolactone continues to be beneficial for hormonal acne and hirsutism 08/17/2023 PCOS (polycystic ovarian syndrome) (ICD-10 - E28.2) Didn't tolerate metformin. Doing well with spironolactone 100mg daily, okay to continue this. 04/11/2024 Abnormal uterine bleeding (AUB) (ICD-10 - [...] remaining papules over the cheeks and forehead. 08/17/2023 Other Kael Yanes D.O. was in suite and available to assist when the visit was rendered. This document used [employer]. Billet Driller errors are not uncommon, and may not have been discovered prior to electronically signing the note. Should you find these errors, please consult the clinician for interpretation (or apply common sense adjustment when safe and appropriate). 10/12/2023 Other Doug Black M.D. was in suite and available to assist when the visit was rendered. This document used [employer]. Billet Driller errors are not uncommon, and may not have been discovered prior to electronically signing the note. Should you find these errors, please consult the clinician for interpretation (or apply common sense adjustment when safe and appropriate). 01/15/2024 Other This document used [employer]. Billet Driller errors are not uncommon, and may not [...] participating in a telemedicine visit versus a [id number] visit. Verbal consent was obtained from the patient/guardian to allow this to be designated as a telehealth encounter in lieu of a ujpo-no-[id number] office visit, the later having been offered [...] the visit was rendered. This document used [employer]. Billet Driller errors are not uncommon, and may not have been discovered prior to electronically signing the note. Should you find these errors, please consult the clinician for interpretation (or apply common sense adjustment when safe and appropriate). 04/11/2024 Other This document used [employer]. Billet Driller errors are not uncommon, and may not [...] participating in a telemedicine visit versus a bhqo-ij-ibzp visit. Verbal consent was obtained from the patient/guardian to allow this to be designated as a telehealth encounter in lieu of a [id number]-co-iszh office visit, the later having been offered [...] the visit was rendered. This document used [employer]. Billet Driller errors are not uncommon, and may not have been discovered prior to electronically signing the note. Should you find these errors, please consult the clinician for interpretation (or apply common sense adjustment when safe and appropriate). Plan Of Treatment No Information Insurance Providers Payer Name Payer Address Payer Phone Subscriber Number Group Number Insured Name Patient Relationship to Insured Coverage Start Date Coverage End Date [facility] [address] [place] [phone] [id number] Juliet Saunders Natural Child - Insured has Financial Responsibility Medical (General) History Surgical History Surgery Date(Month/Year) wisdom teeth
== END 2024-07-07 10:27 | disposition home or self-care (01) ==
PROVIDERS: Emergency Provider Nurse Practitioner Family
DX: J01.90 Acute sinusitis, unspecified (principal); E28.2 Polycystic ovarian syndrome
CPT/HCPCS: 87081; 87880; 99213; G0463